=== PATIENT | female | born 1975 | race Caucasian/White ===

== ENCOUNTER 2019-08-25 07:31 | Inpatient (IN) ==
[2019-08-25] MEDS ORDERED: PENICILLIN G POTASSIUM 6 MU in DEXTROSE 5% 250 ML IV STA (09:18)
[2019-08-25] MEDS ORDERED: OXYTOCIN 30 UNITS/500 ML BAG IV PRN ×2 (09:18→09:35)
--- NOTE | 2019-08-25 09:44 | Obstetrical Progress Note ---
Date of Service August 25, 2019 Assessment & Plan Admission and Anticipated Discharge Date Admission Date: August 25, 2019 Subjective Admit Note 43 [id number] at 40.3 weeks admitted for IOL for post-dates. GBS is positive. Cervix 2/50/-3/anterior/intact/vertex. EFW 7.5 lbs. Plan to start antibiotics and Oxytocin for induction. I discussed plan with patient and spouse and in agreement Results & Data ([place]) Vital Signs (Past 12 Hours) Vital Signs Temp Pulse Resp BP 08/25/19 07:38 36.8 C 94 H 18 141/88 H
[2019-08-25 09:48] LABS: Hematocrit (blood only) 39.5 % (37-47); Hemoglobin 13.5 g/dL (12.0-16.0); Mean Corpuscular Hemoglobin 34.1 pg (25-34); Mean Corpuscular Volume 99.7 fL (80-100); Mean Platelet Volume 10.3 fL (7.4-10.4); Platelet Count 207 K/uL (130-400); RDW Coefficient of Variation 13.2 % (11.5-14.5); Red Blood Count 3.96 M/uL (4.2-5.4); White Blood Count 8.37 K/uL (4.8-10.8)
[2019-08-25 09:52] LABS: Mean Corpuscular Hgb Conc 34.2 g/dL (32-36)
[2019-08-25] MEDS: LACTATED RINGER'S 1,000 ML IV PRN ×3 (10:09→21:14)
--- NOTE | 2019-08-25 13:37 | Obstetrical Progress Note ---
Date of Service August 25, 2019 Assessment & Plan Admission and Anticipated Discharge Date Admission Date: August 25, 2019 Physical Exam Genitourinary: Manual OB Exam: + cervical dilation 3 cm, + cervical effacement 50% and + station high OB Exam Monitor Tracing: + external FHT monitor used, + external uterine monitor used, + category I and + normal FHT variability Results & Data ([facility]) Vital Signs (Past 12 Hours) Vital Signs Temp Pulse Resp BP 08/25/19 13:32 77 143/88 H 08/25/19 11:36 36.7 C 84 18 138/90 08/25/19 10:18 85 142/92 H 08/25/19 07:38 36.8 C 94 H 18 141/88 H
[2019-08-25] MEDS: PENICILLIN G POTASSIUM 3 MU in DEXTROSE 5% 100 ML IV PRN ×3 (15:08→23:36)
--- NOTE | 2019-08-25 16:42 | Obstetrical Progress Note ---
Date of Service August 25, 2019 Assessment & Plan Admission and Anticipated Discharge Date Admission Date: August 25, 2019 Physical Exam Genitourinary: Manual OB Exam: + cervical dilation 4 cm, + cervical effacement 70%, + station -2 and + amniotic fluid clear and bloody OB Exam Monitor Tracing: + external FHT monitor used, + external uterine monitor used, + categ ory I and + normal FHT variability AROM done with Amni-hook with clear bloody fluid noted Results & Data ([facility]) Vital Signs (Past 12 Hours) Vital Signs Temp Pulse Resp BP 08/25/19 16:07 77 129/87 08/25/19 14:52 36.9 C 76 20 126/80 08/25/19 14:19 36.6 C 75 20 126/84 08/25/19 13:32 77 143/88 H 08/25/19 11:36 36.7 C 84 18 138/90 08/25/19 10:18 85 142/92 H 08/25/19 07:38 36.8 C 94 H 18 141/88 H
[2019-08-25] MEDS ORDERED: BUPIVACAINE 0.25% 30 ML VIAL ONE (18:03)
[2019-08-25] MEDS ORDERED: fentaNYL 2MCG/ML ROPIV 1.25MG/ML 100 ML BAG EPI ONE (18:03)
[2019-08-25] MEDS ORDERED: ePHEDrine sulfate 50 MG/ML AMP ONE (18:03)
[2019-08-25] MEDS ORDERED: fentaNYL citrate 100 MCG/2 ML VIAL ONE (18:03)
[2019-08-25] MEDS ORDERED: ePHEDrine sulfate 50 MG/ML AMP IV PRN (18:34)
[2019-08-25] MEDS ORDERED: DiphenhydrAMINE HCL 50 MG/ML VIAL IV PRN (18:34)
[2019-08-25] MEDS ORDERED: NALBUPHINE HCL INJ 10 MG/ML AMP IV PRN (18:34)
[2019-08-25] MEDS ORDERED: NALOXONE HCL 1 MG in SODIUM CHLORIDE 0.9% 1000ML 1,000 ML IV PRN (18:34)
[2019-08-25] MEDS ORDERED: ONDANSETRON INJ 2 MG/ML 2 ML VIAL IV PRN (18:34)
[2019-08-25] MEDS ORDERED: fentaNYL 2MCG/ML ROPIV 1.25MG/ML 100 ML BAG EPI PRN (18:34)
[2019-08-25] MEDS ORDERED: NALOXONE HCL 0.4 MG/1 ML VIAL/CARP IV PRN (18:34)
--- NOTE | 2019-08-25 18:52 | Anesthesiology Consultation ---
Date of Service August 25, 2019 Assessment & Plan (1) Encounter for pre-operative examination: Chart Review Chart Review: Patient NOT seen in Pre Admission Testing and Acceptable Risk for Labor Epidural Consults Requested none History Height/Weight Height: 5 ft 3 in Weight: 93.44 kg Allergies Allergy/AdvReac Type Severity Reaction Status Date / Time No Known Allergies Allergy Unverified 02/17/15 18:46 Medications Home Medications Medication Instructions Recorded Confirmed Last Taken garlic [garlic oil] 1,000 mg PO PC 08/25/19 08/25/19 08/22/19 21:00 vit-iron fum-folic ac 1 tab PO DAILY 08/25/19 08/25/19 08/22/19 21:00 [ Vitamin] Active Medications Generic Name Dose Route Start Last Admin Trade Name Freq PRN Reason Stop Dose Admin Lactated Ringer's 1,000 mls @ 125 mls/hr 08/25/19 09:18 08/25/19 18:08 Lr IV 08/27/19 09:17 999 mls/hr .Q8H PRN Administration L&D Protocol Protocol Penicillin G Potassium 3 mu/ 106 mls @ 100 mls/hr 08/25/19 09:18 08/25/19 16:17 Dextrose IV 09/04/19 09:17 Infused Q4H PRN Infusion Give until delivery Oxytocin 30 units in 500 mls @ 15 mls/hr 08/25/19 09:35 08/25/19 14:30 Pitocin IV 08/27/19 09:34 0.9 units/hr .Q24H PRN 15 mls/hr Labor Induction/Augmentation Titration Protocol 0.9 UNITS/HR Past Surgical History Surgical History (Updated 08/25/19 @ 08:19 by Corin Chu RN) [place] teeth extracted Social History Smoking Status: Never smoker Do You Dip or Chew Tobacco: No Hx Alcohol Use: No Hx Substance Use: No Physical Exam Vital Signs Last Vital Signs Temp 36.9 C 08/25/19 14:52 Pulse 73 08/25/19 18:34 Resp 20 08/25/19 14:52 BP 139/85 08/25/19 18:02 Pulse Ox 94 08/25/19 18:34 Testing Laboratory Results 08/25/19 09:35
--- NOTE | 2019-08-25 19:41 | Obstetrical Progress Note ---
Date of Service August 25, 2019 Assessment & Plan Admission and Anticipated Discharge Date Admission Date: August 25, 2019 Physical Exam Genitourinary: Manual OB Exam: + cervical dilation 7 cm, + cervical effacement 90%, + station -1 and + amniotic fluid clear OB Exam Monitor Tracing: + external FHT monitor used, + external uterine monitor used, + category I and + normal FHT variability Results & Data ([facility]) Vital Signs (Past 12 Hours) Vital Signs Temp Pulse Resp BP Pulse Ox 08/25/19 19:39 106 H 100 08/25/19 19:35 118/62 08/25/19 19:34 95 H 96 08/25/19 19:30 93 H 91 08/25/19 19:29 87 99 08/25/19 19:24 72 100 08/25/19 19:19 62 123/65 99 08/25/19 19:14 67 125/69 100 08/25/19 19:09 72 100 08/25/19 19:08 73 130/77 08/25/19 19:06 69 135/79 08/25/19 19:04 73 135/80 96 08/25/19 19:02 68 131/69 08/25/19 19:00 75 124/60 08/25/19 18:59 71 97 08/25/19 18:58 80 125/72 08/25/19 18:56 76 137/73 08/25/19 18:55 79 94 08/25/19 18:54 68 120/67 95 08/25/19 18:52 67 131/74 08/25/19 18:51 72 117/60 08/25/19 18:49 80 98 08/25/19 18:48 36.4 C L 20 08/25/19 18:44 70 97 08/25/19 18:39 84 98 08/25/19 18:34 73 94 08/25/19 18:02 70 139/85 08/25/19 17:04 72 136/80 08/25/19 16:07 77 129/87 08/25/19 14:52 36.9 C 76 20 126/80 08/25/19 14:19 36.6 C 75 20 126/84 08/25/19 13:32 77 143/88 H 08/25/19 11:36 36.7 C 84 18 138/90 08/25/19 10:18 85 142/92 H
[2019-08-25] MEDS ORDERED: LACTATED RINGER'S 1,000 ML IV SCH (23:45)
[2019-08-25] MEDS ORDERED: CITRIC ACID/SODIUM CITRATE 15 ML UDC ONE (23:47)
--- NOTE | 2019-08-25 23:55 | History & Physical Bridge Note ---
Date of Service August 25, 2019 History & Physical Bridge Note I have examined the patient, reviewed the History & Physical and in the interval since the performance of the History & Physical I have noted the following changes of clinical significance: no changes noted
--- NOTE | 2019-08-25 23:55 | Obstetrical Progress Note ---
Date of Service August 25, 2019 Assessment & Plan Admission and Anticipated Discharge Date Admission Date: August 25, 2019 Physical Exam Genitourinary: OB Exam Abdomen: + vertex Manual OB Exam: + cervical dilation 10 cm and + cervical effacement 100% OB Exam Monitor Tracing: + external FHT monitor used, + external uterine monitor used, + category II and + variable decelerations patient does not want to push any further and is requesting a will get OR ready for Surgery. Patient and requesting a tubal ligation as they were not planning any further children Results & Data ([facility]) Vital Signs (Past 12 Hours) Vital Signs Temp Pulse Resp BP Pulse Ox 08/25/19 23:50 81 73/42 L 93 08/25/19 23:45 79 96 08/25/19 23:43 86 93 08/25/19 23:40 84 97 08/25/19 23:36 105 H 114/68 08/25/19 23:35 102 H 96 08/25/19 23:30 101 H 18 96 08/25/19 23:24 124 H 98 08/25/19 23:20 116 H 127/69 08/25/19 23:19 120 H 99 08/25/19 23:14 116 H 98 08/25/19 23:09 118 H 99 08/25/19 23:05 141 H 120/62 91 08/25/19 23:04 113 H 98 08/25/19 22:59 121 H 97 08/25/19 22:54 122 H 99 08/25/19 22:49 122 H 99 08/25/19 22:44 119 H 98 08/25/19 22:39 142 H 98 08/25/19 22:37 98 H 94 08/25/19 22:36 116 H 125/73 08/25/19 22:34 110 H 99 08/25/19 22:32 106 H 93 08/25/19 22:30 36.4 C L 22 08/25/19 22:29 138 H 99 08/25/19 22:24 82 100 08/25/19 22:20 101 H 94 08/25/19 22:19 93 H 99 08/25/19 22:14 88 85 L 08/25/19 22:09 74 95 08/25/19 22:06 90 132/89 08/25/19 22:04 91 H 98 03/05/20 21:59 82 98 03/05/20 21:54 89 97 03/05/20 21:50 87 128/102 H 03/05/20 21:49 83 99 03/05/20 21:44 86 97 03/05/20 21:39 83 98 03/05/20 21:35 76 119/60 03/05/20 21:34 80 96 03/05/20 21:29 75 98 03/05/20 21:27 70 94 03/05/20 21:24 69 97 03/05/20 21:21 75 100/60 03/05/20 21:19 72 97 03/05/20 21:14 72 98 03/05/20 21:09 114 H 97 03/05/20 21:05 71 134/89 03/05/20 21:04 83 99 03/05/20 20:59 91 H 98 03/05/20 20:55 91 H 94 03/05/20 20:54 75 100 03/05/20 20:50 76 116/84 03/05/20 20:49 78 100 03/05/20 20:47 85 92 03/05/20 20:44 83 100 03/05/20 20:39 84 98 03/05/20 20:36 82 124/85 03/05/20 20:34 82 100 03/05/20 20:29 85 100 03/05/20 20:24 86 100 03/05/20 20:20 74 121/75 03/05/20 20:19 70 100 03/05/20 20:14 68 98 03/05/20 20:09 69 98 03/05/20 20:05 67 120/76 03/05/20 20:04 69 98 03/05/20 19:59 90 98 03/05/20 19:54 102 H 98 03/05/20 19:50 75 20 116/65 03/05/20 19:49 78 98 03/05/20 19:44 89 99 03/05/20 19:39 106 H 100 03/05/20 19:35 118/62 03/05/20 19:34 95 H 96 03/05/20 19:30 93 H 91 03/05/20 19:29 87 99 03/05/20 19:24 72 100 03/05/20 19:19 62 123/65 99 03/05/20 19:14 67 125/69 100 08/25/19 19:09 72 100 08/25/19 19:08 73 130/77 08/25/19 19:06 36.5 C 69 16 135/79 08/25/19 19:04 73 135/80 96 08/25/19 19:02 68 131/69 08/25/19 19:00 75 124/60 08/25/19 18:59 71 97 08/25/19 18:58 80 125/72 08/25/19 18:56 76 137/73 08/25/19 18:55 79 94 08/25/19 18:54 68 120/67 95 08/25/19 18:52 67 131/74 08/25/19 18:51 72 117/60 08/25/19 18:49 80 98 08/25/19 18:48 36.4 C L 20 08/25/19 18:44 70 97 08/25/19 18:39 84 98 08/25/19 18:34 73 94 08/25/19 18:02 70 20 139/85 08/25/19 17:04 72 136/80 08/25/19 16:07 77 129/87 08/25/19 14:52 36.9 C 76 20 126/80 08/25/19 14:19 36.6 C 75 20 126/84 08/25/19 13:32 77 143/88 H
[2019-08-26] MEDS ORDERED: LIDOCAINE/EPINEPHRINE 2% 1:200,000 20 ML SDV ONE (00:12)
[2019-08-26] MEDS ORDERED: OXYTOCIN 10 UNITS/ML VIAL ONE (00:13)
[2019-08-26] MEDS ORDERED: CITRIC ACID/SODIUM CITRATE 15 ML UDC PO ONE (00:30)
[2019-08-26] MEDS ORDERED: CEFAZOLIN 2000MG 2,000 MG/15 ML SYR IV SCH (00:30)
[2019-08-26] MEDS ORDERED: MoRPHine SULFATE PF 1 MG/ML 10 ML AMP/VIAL ONE (00:41)
[2019-08-26 00:47] LABS: Hemoglobin 13.3 g/dL (12.0-16.0); Mean Corpuscular Volume 99.7 fL (80-100); Platelet Count 219 K/uL (130-400); RDW Coefficient of Variation 13.4 % (11.5-14.5); RDW Standard Deviation 48.1 fL (36.4-46.3); Red Blood Count 3.91 M/uL (4.2-5.4); White Blood Count 17.67 K/uL (4.8-10.8)
[2019-08-26] MEDS ORDERED: PHENYLEPHRINE 100MCG/ML 5ML SYR ONE (00:51)
[2019-08-26] MEDS ORDERED: ePHEDrine sulfate 50 MG/ML AMP IV PRN (00:53)
[2019-08-26] MEDS ORDERED: MoRPHine SULFATE PF 1 MG/ML 10 ML AMP/VIAL INT SPINAL ONE (00:53)
[2019-08-26] MEDS ORDERED: NALOXONE HCL 0.08 MG in SYRINGE 1.8 ML IV PRN (00:53)
[2019-08-26] MEDS ORDERED: ONDANSETRON INJ 2 MG/ML 2 ML VIAL IV PRN ×2 (00:53→18:53)
[2019-08-26] MEDS ORDERED: DiphenhydrAMINE HCL 50 MG/ML VIAL IV PRN ×2 (00:53→18:53)
[2019-08-26] MEDS ORDERED: NALOXONE HCL 0.4 MG/1 ML VIAL/CARP IV PRN (00:53)
[2019-08-26] MEDS ORDERED: NALOXONE HCL 1 MG in SODIUM CHLORIDE 0.9% 1000ML 1,000 ML IV PRN (00:53)
[2019-08-26] MEDS ORDERED: NALBUPHINE HCL INJ 10 MG/ML AMP IV PRN (00:53)
[2019-08-26] MEDS ORDERED: KETOROLAC 30 MG/ML VIAL IV PRN ×2 (00:53→18:53)
[2019-08-26] MEDS ORDERED: LACTATED RINGER'S 500 ML IV PRN (00:53)
[2019-08-26] MEDS ORDERED: MEPERIDINE HCL 25 MG/ML CARP/VIAL IV PRN (00:53)
[2019-08-26] MEDS ORDERED: ePHEDrine sulfate 50 MG/ML SYR ONE (00:56)
[2019-08-26] MEDS ORDERED: NO NARCOTICS OR SEDATIVES SCH (01:00)
[2019-08-26] MEDS ORDERED: SODIUM CHLORIDE 0.9% 1000ML 1,000 ML IV SCH (01:00)
[2019-08-26] MEDS ORDERED: DC INTRASPINAL MORPHINE SCH (01:00)
[2019-08-26 01:04] LABS: Basophils # (auto) 0.01 K/uL (0-0.2); Basophils % (auto) 0.1 %; Immature Granulocytes # (auto) 0.07 K/uL (0.00-0.02); Immature Granulocytes % (auto) 0.4 %; Lymphocytes # (auto) 1.28 K/uL (1.2-3.4); Lymphocytes % (auto) 7.2 %; Mean Corpuscular Hgb Conc 34.1 g/dL (32-36); Monocytes # (auto) 0.73 K/uL (0.11-0.59); Monocytes % (auto) 4.1 %; Neutrophils # (auto) 15.58 K/uL (1.4-6.5); Neutrophils % (auto) 88.2 %
--- NOTE | 2019-08-26 01:41 | Post Operative Brief Note ---
Immediate Post Op Note v1 Date of Surgery August 26, 2019 Pre & Post Diagnosis Operation Date: 08/26/19 00:25 <No data on this case meets the specified criteria> I identified the patient and participated in the time-out.: Yes Procedure Operation Date: 08/26/19 00:25 Actual Procedures p Section in LD Live Female @ 0043 - Lyle Bejarano MD Surgeon Lyle Bejarano MD Furniture Painter Ekaterina Sewell RN Estimated Blood Loss 800 Findings Consistent with Post-Op Diagnosis Drains Muniz Catheter (Patent and draining )
--- NOTE | 2019-08-26 01:53 | Anesthesiology Progress Note ---
Date of Service August 26, 2019 Anesthesia Post Procedure Vital Signs Vital Signs: Temp Pulse Resp BP Pulse Ox 08/26/19 01:50 78 78/52 L 100 08/26/19 01:49 84 81/46 L 08/26/19 01:48 79 91 08/26/19 01:46 77 78/52 L 08/26/19 01:45 80 98 08/26/19 01:44 85 75/47 L 08/26/19 01:42 81 78/47 L 08/26/19 01:40 75 80/52 L 97 08/26/19 01:39 81 75/47 L 08/26/19 01:38 75 72/44 L 08/26/19 01:36 82 73/46 L 08/26/19 01:35 83 99 08/26/19 00:26 18 08/26/19 00:25 98 H 96 08/26/19 00:24 93 H 117/76 08/26/19 00:23 94 H 122/75 08/26/19 00:22 83 118/77 08/26/19 00:20 95 H 97 08/26/19 00:19 87 117/80 08/26/19 00:15 96 H 96 08/26/19 00:14 85 116/72 08/26/19 00:10 92 H 98 08/26/19 00:09 99 H 106/71 08/26/19 00:05 89 99 08/26/19 00:04 99 H 111/69 08/26/19 00:02 86 109/63 08/26/19 00:00 98.4 F 85 18 114/71 97 08/25/19 23:58 85 80/52 L 08/25/19 23:55 79 82/51 L 98 08/25/19 23:50 81 73/42 L 93 08/25/19 23:45 79 96 08/25/19 23:43 86 93 08/25/19 23:40 84 97 08/25/19 23:36 105 H 114/68 08/25/19 23:35 102 H 96 08/25/19 23:30 101 H 18 96 08/25/19 23:24 124 H 98 08/25/19 23:20 116 H 127/69 08/25/19 23:19 120 H 99 08/25/19 23:14 116 H 98 08/25/19 23:09 118 H 99 08/25/19 23:05 141 H 120/62 91 05 23:04 113 H 98 08/25/19 22:59 121 H 97 08/25/19 22:54 122 H 99 20 22:49 122 H 99 08/25/19 22:44 119 H 98 0520 22:39 142 H 98 05 22:37 98 H 94 0520 22:36 116 H 125/73 05 22:34 110 H 99 08/25/19 22:32 106 H 93 05 22:30 97.5 F L 22 08/25/19 22:29 138 H 99 08/25/19 22:24 82 100 0520 22:20 101 H 94 0520 22:19 93 H 99 05 22:14 88 85 L 08/25/19 22:09 74 95 05 22:06 90 132/89 05 22:04 91 H 98 0520 21:59 82 98 0520 21:54 89 97 030520 21:50 87 128/102 H 08/25/19 21:49 83 99 0520 21:44 86 97 0520 21:39 83 98 05/20 21:35 76 119/60 /05/20 21:34 80 96 /05/20 21:29 75 98 0520 21:27 70 94 0520 21:24 69 97 0520 21:21 75 100/60 03/05/20 21:19 72 97 /05/20 21:14 72 98 03/05/20 21:09 114 H 97 0520 21:05 71 134/89 030520 21:04 83 99 05/20 20:59 91 H 98 05/20 20:55 91 H 94 05/20 20:54 75 100 03/05/20 20:50 76 116/84 03/05/20 20:49 78 100 03/05/20 20:47 85 92 03/05/20 20:44 83 100 03/05/20 20:39 84 98 03/05/20 20:36 82 124/85 03/05/20 20:34 82 100 03/05/20 20:29 85 100 03/05/20 20:24 86 100 03/05/20 20:20 74 121/75 03/05/20 20:19 70 100 03/05/20 20:14 68 98 03/05/20 20:09 69 98 03/05/20 20:05 67 120/76 03/05/20 20:04 69 98 03/05/20 19:59 90 98 03/05/20 19:54 102 H 98 03/05/20 19:50 75 20 116/65 03/05/20 19:49 78 98 03/05/20 19:44 89 99 03/05/20 19:39 106 H 100 03/05/20 19:35 118/62 03/05/20 19:34 95 H 96 03/05/20 19:30 93 H 91 03/05/20 19:29 87 99 03/05/20 19:24 72 100 03/05/20 19:19 62 123/65 99 03/05/20 19:14 67 125/69 100 03/05/20 19:09 72 100 03/05/20 19:08 73 130/77 03/05/20 19:06 97.7 F 69 16 135/79 03/05/20 19:04 73 135/80 96 03/05/20 19:02 68 131/69 03/05/20 19:00 75 124/60 03/05/20 18:59 71 97 03/05/20 18:58 80 125/72 03/05/20 18:56 76 137/73 03/05/20 18:55 79 94 03/05/20 18:54 68 120/67 95 03/05/20 18:52 67 131/74 03/05/20 18:51 72 117/60 03/05/20 18:49 80 98 03/05/20 18:48 97.5 F L 20 03/05/20 18:44 70 97 03/05/20 18:39 84 98 03/05/20 18:34 73 94 03/05/20 18:02 70 20 139/85 03/05/20 17:04 72 136/80 03/05/20 16:07 77 129/87 03/05/20 14:52 98.4 F 76 20 126/80 08/25/19 14:19 97.9 F 75 20 126/84 08/25/19 13:32 77 143/88 H 08/25/19 11:36 98.1 F 84 18 138/90 08/25/19 10:18 85 142/92 H 08/25/19 07:38 98.2 F 94 H 18 141/88 H Pain Intensity Lower Abdomen: Pain Intensity: 7 Transfer of Care Handoff Completed per policy Notes Mental Status: alert / awake / arousable and participated in evaluation Nausea / Vomiting: adequately controlled Pain: adequately controlled Airway Patency, RR, SpO2: stable & adequate BP & HR: stable & adequate Hydration State: stable & adequate Neuraxial Anesthesia: was administered and sensory block is resolving Anesthetic Complications: no major complications apparent and Pt Satisfied with anesthetic care
[2019-08-26] MEDS ORDERED: HYDROCORTISONE ACETATE 25 MG SUPP PR PRN (02:17)
[2019-08-26] MEDS ORDERED: BENZOCAINE 20% AER SPR 82.5 GM CAN EXT PRN (02:17)
[2019-08-26] MEDS ORDERED: SENNA 8.6 MG TAB PO PRN (02:17)
[2019-08-26] MEDS ORDERED: PROMETHAZINE HCL 25 MG in SODIUM CHLORIDE 0.9% 50 ML IV PRN (02:17)
[2019-08-26] MEDS ORDERED: DIPHTHERIA/TETANUS/PERTUSSIS 0.5 ML SYR/VIAL IM ONE (02:17)
[2019-08-26] MEDS ORDERED: SUPERCREAM 0.870% 15 GM JAR EXT PRN (02:17)
[2019-08-26] MEDS ORDERED: LACTATED RINGER'S 1,000 ML IV SCH (02:17)
[2019-08-26] MEDS ORDERED: MAGNESIUM HYDROXIDE SUSP 30 ML UDC PO PRN (02:17)
[2019-08-26] MEDS: OXYTOCIN 30 UNITS in LACTATED RINGER'S 1,000 ML IV SCH ×2 (03:17→11:51)
--- NOTE | 2019-08-26 03:18 | Operative Report (OR) ---
DATE OF OPERATION: 08/26/2019 PREOPERATIVE DIAGNOSES: Term with arrest of descent and maternal exhaustion and desire for permanent sterilization. POSTOPERATIVE DIAGNOSES: Term with arrest of descent and maternal exhaustion and desire for permanent sterilization. PROCEDURE: Primary section, low segment transverse and bilateral tubal ligation with Filshie clips. SURGEON: Lyle Bejarano MD LOCOMOTIVE OBSERVER: Ekaterina Sewell RN ANESTHESIA: Epidural with Duramorph. FINDINGS: Live female. The Apgars were 3, 5, and 10, vertex. CLINICAL HISTORY: The patient is a 44-year-old female para 3-0-0-3 at 40 weeks and 4 days at the time of section, brought to the OR for arrest of descent. The patient was pushing for approximately 1 hour or so with maternal exhaustion and refused to push anymore and a section was then planned. She desired elective sterilization and this was discussed with her as well as they did not want any more children. DESCRIPTION OF PROCEDURE: Under satisfactory epidural anesthesia, the patient was prepped and draped in usual sterile fashion. Timeout was called. Ancef 2 grams were given preop. A low Pfannenstiel incision carrying this down into the abdominal cavity in successive layers was done. Upon entering into the lower uterine segment of the uterus, it was noted that there was severe edema of the lower uterine segment, especially on the right hand side with uterus somewhat hemorrhagic. The bladder flap was made with sharp dissection with Metzenbaum scissors. High on the uterus, a low segment transverse incision was then made. The entrance into the cavity was accomplished without difficulty. The incision was widened in the AP diameter. The was then delivered from the vertex presentation, delivering a live female, Apgars were 3, 5 and 10 at 1, 5, and 10 minutes. Cord blood was obtained followed by length of cord for cord gases and then the placenta was delivered spontaneously and intact. The uterus was then exteriorized. Uterus was abnormal in shape. The contents of the uterine cavity were cleaned out manually of all clots and debris. There was some hemorrhage into the uterus that was noted on the right hand side which was not expanding with a small hematoma that was noted. The lower segment was grasped with ring forceps. The uterus was closed in double layer closure starting with the 0 Vicryl suture in a continuous interlocking fashion followed by a second imbricating layer of 0 Vicryl suture. No active bleeding was noted. The tubes and ovaries bilaterally were found to be within normal limits and the Filshie clip applicator was used to apply 2 clips to each side serially. The contents of the pelvic and abdominal cavity were then irrigated to clear. The uterus was firm. The initial sponge, needle, and instrument counts were found to be correct. The area of concern on the right hand side was not expanding. The uterus was placed back into the normal anatomical position. The fascia was then reapproximated from both ends using 0 Vicryl suture in a continuous fashion. Subcuticular space was then irrigated. The subcuticular layer was then closed with 2-0 plain suture in a continuous fashion and the subcuticular layer was then irrigated and bleeders were cauterized and the skin was then reapproximated with valerie. Bloody urine was noted from the Muniz. The final sponge, needle, and instrument counts were found to be correct. The patient was placed supine on a stretcher and she was taken to recovery room in stable condition. I attest to the content of the Intraoperative Record and any orders documented therein. Any exceptions are noted below. DESIRE
[2019-08-26] MEDS: PRENATAL VITAMIN 1 TAB PO SCH (08:25)
[2019-08-26] MEDS: DOCUSATE SODIUM 100 MG CAP PO SCH ×2 (08:25→20:40)
[2019-08-26] MEDS: FERROUS SULFATE 325 MG TAB PO SCH (08:25)
[2019-08-26] MEDS: SIMETHICONE 80 MG CHEW PO SCH ×4 (08:25→22:50)
[2019-08-26] MEDS ORDERED: NON-FORMULARY MEDICATION (Prenatal Vit-Iron Fum-Folic Ac [Prenatal Vitamin] 1 TAB) PO SCH (09:00)
[2019-08-26] MEDS ORDERED: GARLIC 1000 MG PO SCH (09:00)
[2019-08-26] MEDS ORDERED: MEPERIDINE HCL 50 MG/ML CARP IV PRN (18:53)
[2019-08-26] MEDS: IBUPROFEN 600 MG TAB PO PRN (20:40)
[2019-08-26] MEDS: OXYCODONE/ACETAMINOPHEN 5mg/325mg TAB PO PRN (20:40)
[2019-08-27] MEDS: OXYCODONE/ACETAMINOPHEN 5mg/325mg TAB PO PRN ×2 (02:35→19:14)
[2019-08-27] MEDS: IBUPROFEN 600 MG TAB PO PRN ×4 (02:36→19:15)
--- NOTE | 2019-08-27 06:46 | Progress Note ---
Date of Service August 27, 2019 Assessment & Plan Admission and Anticipated Discharge Date Admission Date: August 25, 2019 Subjective Called to evaluate pt with urinary incontinence post op day #2 Pt reports spontaneous loss of urine since Muniz was removed Bladder scan; 350CC Pelvic exam; Vulvo vaginal edema Muniz cath is placed Urine is clear Results & Data ([facility]) Vital Signs (Past 12 Hours) Vital Signs Temp Pulse Resp BP Pulse Ox 08/26/19 23:00 36.8 C 71 20 127/74 94 08/26/19 19:50 37.2 C 101 H 20 117/73 100
[2019-08-27 06:58] LABS: Basophils # (auto) 0.03 K/uL (0-0.2); Basophils % (auto) 0.2 %; Eosinophils # (auto) 0.05 K/uL (0-0.5); Eosinophils % (auto) 0.4 %; Hematocrit (blood only) 23.7 % (37-47); Hemoglobin 8.2 g/dL (12.0-16.0); Immature Granulocytes # (auto) 0.04 K/uL (0.00-0.02); Immature Granulocytes % (auto) 0.3 %; Lymphocytes # (auto) 1.58 K/uL (1.2-3.4); Lymphocytes % (auto) 11.7 %; Mean Corpuscular Hemoglobin 34.3 pg (25-34); Mean Corpuscular Hgb Conc 34.6 g/dL (32-36); Mean Corpuscular Volume 99.2 fL (80-100); Mean Platelet Volume 9.3 fL (7.4-10.4); Monocytes # (auto) 0.67 K/uL (0.11-0.59); Neutrophils # (auto) 11.16 K/uL (1.4-6.5); Neutrophils % (auto) 82.4 %; Platelet Count 172 K/uL (130-400); RDW Coefficient of Variation 13.4 % (11.5-14.5); RDW Standard Deviation 48.1 fL (36.4-46.3); Red Blood Count 2.39 M/uL (4.2-5.4); White Blood Count 13.53 K/uL (4.8-10.8)
[2019-08-27] MEDS: PRENATAL VITAMIN 1 TAB PO SCH (09:11)
[2019-08-27] MEDS: SIMETHICONE 80 MG CHEW PO SCH ×4 (09:11→20:02)
[2019-08-27] MEDS: FERROUS SULFATE 325 MG TAB PO SCH (09:11)
[2019-08-27] MEDS: DOCUSATE SODIUM 100 MG CAP PO SCH ×2 (09:12→20:01)
[2019-08-27] MEDS ORDERED: ACETAMINOPHEN SOLN 500 MG/15.62 ML UDP PO PRN (14:50)
[2019-08-27] MEDS ORDERED: ACETAMINOPHEN 500 MG TAB PO PRN (17:18)
[2019-08-27] MEDS ORDERED: bisacodyL 5 MG TABEC PO SCH (20:00)
--- NOTE | 2019-08-27 20:25 | Surgery Progress Note ---
Date of Service August 27, 2019 Subjective doing well passing gas tolerating diet ambulating well Physical Exam Constitutional: WD/WN, vitals as above comfortable incision clean dry and intact abdomen soft and non-tender legs with some edema neg Vicki's Results & Data Vital Signs (Past 12 Hours) Vital Signs Temp Pulse Resp BP Pulse Ox 08/27/19 15:44 36.7 C 102 H 16 115/60 98 08/27/19 08:49 36.7 C 109 H 18 126/85 98 Laboratory Results Laboratory Results - last 72 hr 08/25/19 08/26/19 08/27/19 09:35 00:06 06:44 WBC 8.37 17.67 H 13.53 H RBC 3.96 L 3.91 L 2.39 L Hgb 13.5 13.3 8.2 L D Hct 39.5 39.0 23.7 L MCV 99.7 99.7 99.2 MCH 34.1 H 34.0 34.3 H MCHC 34.2 34.1 34.6 RDW Std Deviation 48.0 H 48.1 H 48.1 H RDW Coeff of Dena 13.2 13.4 13.4 Plt Count 207 219 172 MPV 10.3 11.0 H 9.3 Immature Gran % (Auto) 0.4 0.3 Neut % (Auto) 88.2 82.4 Lymph % (Auto) 7.2 11.7 [place] % (Auto) 4.1 5.0 Eos % (Auto) 0.0 0.4 Baso % (Auto) 0.1 0.2 Immature Gran # (Auto) 0.07 H 0.04 H Neut # (Auto) 15.58 H 11.16 H Lymph # (Auto) 1.28 1.58 [place] # (Auto) 0.73 H 0.67 H Eos # (Auto) 0.00 0.05 Baso # (Auto) 0.01 0.03
[2019-08-28] MEDS ORDERED: bisacodyL 10 MG SUPP PR PRN (01:37)
[2019-08-28] MEDS: IBUPROFEN 600 MG TAB PO PRN ×2 (06:32→12:36)
[2019-08-28 06:34] LABS: Basophils # (auto) 0.02 K/uL (0-0.2); Basophils % (auto) 0.2 %; Eosinophils # (auto) 0.13 K/uL (0-0.5); Eosinophils % (auto) 1.1 %; Hematocrit (blood only) 23.1 % (37-47); Immature Granulocytes # (auto) 0.05 K/uL (0.00-0.02); Immature Granulocytes % (auto) 0.4 %; Lymphocytes # (auto) 2.58 K/uL (1.2-3.4); Lymphocytes % (auto) 21.5 %; Mean Corpuscular Hemoglobin 34.5 pg (25-34); Mean Corpuscular Hgb Conc 34.6 g/dL (32-36); Mean Corpuscular Volume 99.6 fL (80-100); Mean Platelet Volume 9.3 fL (7.4-10.4); Monocytes # (auto) 0.69 K/uL (0.11-0.59); Monocytes % (auto) 5.7 %; Neutrophils # (auto) 8.55 K/uL (1.4-6.5); Neutrophils % (auto) 71.1 %; Platelet Count 189 K/uL (130-400); RDW Coefficient of Variation 13.7 % (11.5-14.5); Red Blood Count 2.32 M/uL (4.2-5.4); White Blood Count 12.02 K/uL (4.8-10.8)
[2019-08-28] MEDS: OXYCODONE/ACETAMINOPHEN 5mg/325mg TAB PO PRN (07:54)
[2019-08-28] MEDS: FERROUS SULFATE 325 MG TAB PO SCH (07:54)
[2019-08-28] MEDS: PRENATAL VITAMIN 1 TAB PO SCH (07:54)
[2019-08-28] MEDS: DOCUSATE SODIUM 100 MG CAP PO SCH (07:54)
[2019-08-28] MEDS: SIMETHICONE 80 MG CHEW PO SCH ×2 (07:54→12:37)
--- NOTE | 2019-08-28 12:12 | Surgery Progress Note ---
Date of Service August 28, 2019 Subjective Doing well voided twice since Muniz was removed wants to go home passsing gas tolerating diet ambulating well Physical Exam Constitutional: WD/WN, vitals as above comfortable incision clean dry and intact fundus firm abdomen soft and non-tender legs with some edema neg Vicki's plan for discharge today follow up this week in office for incision check Results & Data Vital Signs (Past 12 Hours) Vital Signs Temp Pulse Pulse Resp BP Pulse Ox 08/28/19 07:40 36.8 C 94 H 18 118/82 98 08/28/19 00:00 36.8 C 74 18 123/76 96 Laboratory Results 08/25/19 08/26/19 08/27/19 09:35 00:06 06:44 WBC 8.37 17.67 H 13.53 H RBC 3.96 L 3.91 L 2.39 L Hgb 13.5 13.3 8.2 L D Hct 39.5 39.0 23.7 L MCV 99.7 99.7 99.2 MCH 34.1 H 34.0 34.3 H MCHC 34.2 34.1 34.6 RDW Std Deviation 48.0 H 48.1 H 48.1 H RDW Coeff of Dena 13.2 13.4 13.4 Plt Count 207 219 172 MPV 10.3 11.0 H 9.3 Immature Gran % (Auto) 0.4 0.3 Neut % (Auto) 88.2 82.4 Lymph % (Auto) 7.2 11.7 [place] % (Auto) 4.1 5.0 Eos % (Auto) 0.0 0.4 Baso % (Auto) 0.1 0.2 Immature Gran # (Auto) 0.07 H 0.04 H Neut # (Auto) 15.58 H 11.16 H Lymph # (Auto) 1.28 1.58 [place] # (Auto) 0.73 H 0.67 H Eos # (Auto) 0.00 0.05 Baso # (Auto) 0.01 0.03 08/28/19 06:25 WBC 12.02 H RBC 2.32 L Hgb 8.0 L Hct 23.1 L MCV 99.6 MCH 34.5 H MCHC 34.6 RDW Std Deviation 50.0 H RDW Coeff of Dena 13.7 Plt Count 189 MPV 9.3 Immature Gran % (Auto) 0.4 Neut % (Auto) 71.1 Lymph % (Auto) 21.5 [place] % (Auto) 5.7 Eos % (Auto) 1.1 Baso % (Auto) 0.2 Immature Gran # (Auto) 0.05 H Neut # (Auto) 8.55 H Lymph # (Auto) 2.58 [place] # (Auto) 0.69 H Eos # (Auto) 0.13 Baso # (Auto) 0.02
--- NOTE | 2019-09-13 16:55 | Discharge Summary (DS) ---
REASON FOR ADMISSION: The patient is a 44-year-old female para 3-0-0-3 at 40 weeks and 4 days at the time of section, brought to the OR for arrest of descent and she had a delivery under epidural anesthesia, low segment transverse. Apgars were 3, 5 and 10 at 1, 5 and 10 minutes. Cord blood was obtained. The patient also had permanent sterilization procedure with Filshie clips. The patient was discharged home in stable condition on 08/28/2019. Home going instructions were given. Condition on discharge is stable. Regular diet on discharge. Follow up will be in the office in 1 week. Medications include Percocet and Motrin. MTDD
== END 2019-08-28 16:00 | disposition home or self-care (01) | DRG 785 ==
LOC: 4S1 07:31 → 4S2 08-26 04:00